=== PATIENT | female | born 1955 | race Caucasian/White ===

== ENCOUNTER 2021-03-27 19:26 | Inpatient (IN) | payer MEDICARE, OTHER ==
[~2021-03-27] VITALS: Ht 157.5 cm; Wt 50.3 kg
--- NOTE | 2021-03-27 19:40 | NUR ---
admitted from [facility] ER awake alert and orientated X4 skin intact C/O abd pain HX> duodenal ulcer no c/o at this time at the bedside #[phone] ARELI Patient speaks [place] but with understanding of [place] noted she is steady on her legs when ambulating tot the bathroom abd soft BS via auscultation rare and faint abd soft
[2021-03-27 20:00] VITALS: BP 124/73
[2021-03-27] MEDS ORDERED: LEVO137T24 PO (20:48)
[2021-03-27] MEDS ORDERED: PANT20TA2 PO (20:48)
[2021-03-27 20:53] VITALS: BP 124/73
[2021-03-27] MEDS ORDERED: ONDANSETRON HCL/PF 4 MG/2 ML VIAL IVP PRN (21:00)
[2021-03-27] MEDS ORDERED: Z GUARD REMEDY 2 OZ OINT TP PRN (21:00)
[2021-03-27] MEDS ORDERED: ACETAMINOPHEN 325 MG TABLET PO PRN (21:00)
[2021-03-27] MEDS ORDERED: Potassium Chloride 20 MEQ in IV LR 1000 ML 1,000 ML IV PRN (21:00)
[2021-03-27] MEDS: METOCLOPRAMIDE HCL 10 MG/2 ML VIAL IV SCH (22:06)
--- NOTE | 2021-03-28 04:35 | NUR ---
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 NPO status maintained IV infusing right wrist peripheral site w/o problems. BS via auscultation faint and rare, abd soft. NO c/o of pain. alert and orientated X4. slept soundly this 12 hours. continent steady on her legs with ambulation
[2021-03-28] MEDS: METOCLOPRAMIDE HCL 10 MG/2 ML VIAL IV SCH ×4 (05:55→23:57)
[2021-03-28 05:59] LABS: BASOPHILS % (AUTO) 0.7 % (0.0-2.0); EOSINOPHILS % (AUTO) 3.5 % (0.0-6.0); HEMATOCRIT 29 % (33-45); HEMOGLOBIN 9.5 g/dL (11.5-14.8); LYMPHOCYTES # (AUTO) 1.9 K/uL (0.8-4.8); LYMPHOCYTES % (AUTO) 31.5 % (20.0-44.0); MEAN CORPUSCULAR HGB CONC 33 g/dl (31.0-36.0); MEAN CORPUSCULAR VOLUME 89 fL (82-100); MONOCYTES # (AUTO) 0.5 K/uL (0.1-1.30); MONOCYTES % (AUTO) 8.6 % (2.0-12.0); NEUTROPHILS # (AUTO) 3.4 K/uL (1.8-8.9); NEUTROPHILS % (AUTO) 55.7 % (43.0-81.0); PLATELET COUNT (AUTO) 232 K/uL (150-450); RED BLOOD CELL COUNT(AUTO) 3.23 MIL/uL (4.0-5.2)
[2021-03-28 07:09] LABS: THYROID STIMULATING HORMONE 0.053 uIU/mL (0.358-3.74)
[2021-03-28 07:24] LABS: ALBUMIN 2.8 g/dL (3.4-5.0); BILIRUBIN,TOTAL 0.4 mg/dL (0.2-1.0); CALCIUM, SERUM 8.7 mg/dL (8.5-10.1); CREATININE 0.7 mg/dL (0.6-1.3); MAGNESIUM 1.9 mg/dL (1.8-2.4); PHOSPHORUS 3.6 mg/dL (2.5-4.9); POTASSIUM 4.2 mmol/L (3.5-5.1); TOTAL PROTEIN, SERUM 6.2 g/dL (6.4-8.2)
[2021-03-28] MEDS: PANTOPRAZOLE 40 MG TABLET.DR PO SCH (07:30)
--- NOTE | 2021-03-28 07:46 | NUR ---
MS RN OPENING NOTES RECEIVED PATIENT IN BED ASLEEP, EASY TO AROUSE. ON ROOM AIR, ALERT AND ORIENTED X 4, NON-VERBAL BUT RESPONDS WITH GESTURES. NO SIGNS OR SYMPTOMS OF DISTRESS NOTED. NO COMPLAINTS OF PAIN AT THIS TIME. BREATHING IS EVEN AND UNLABORED. IV ACCESS LAC#18G, PATENT AND INTACT WITH KCL 20MEQ NS @80MLS/HR. SAFETY MEASURES IN PLACE WITH BED LOCKED IN LOW POSITION, SIDE RAILS UP X 2. CALL LIGHT IS WITHIN REACH. WILL CONTINUE TO MONITOR THROUGHOUT SHIFT. Addendum: 03/28/21 at 0749 by ELLIOT TURCIOS RN ADDENDUM-ERROR WRONG PATIENT
--- NOTE | 2021-03-28 07:53 | NUR ---
MS RN OPENING NOTES RECEIVED PATIENT IN BED AWAKE. PATIENT IS ALERT AND ORIENTED X 4. NO SIGNS OR SYMPTOMS OF DISTRESS NOTED. NO COMPLAINTS OF PAIN AT THIS TIME. ON ROOM AIR, BREATHING IS EVEN AND UNLABORED. IV ACCESS R WRIST#20, PATENT AND INTACT. SAFETY MEASURES IN PLACE WITH BED LOCKED IN LOW POSITION, SIDE RAILS UP X 2. CALL LIGHT IS WITHIN REACH. WILL CONTINUE TO MONITOR THROUGHOUT SHIFT.
[2021-03-28 08:00] VITALS: BP 139/73
[2021-03-28] MEDS: Potassium Chloride 20 MEQ in IV LR 1000 ML 1,000 ML IV SCH ×2 (08:19→18:32)
[2021-03-28] MEDS: LEVOTHYROXINE SODIUM 137 MCG TABLET PO SCH (08:19)
[2021-03-28] MEDS: ENOXAPARIN SODIUM 40 MG/0.4 ML DISP.SYRIN SQ SCH (08:31)
--- NOTE | 2021-03-28 14:35 | NUR ---
RN NOTES PATIENT TRANSPORTED FROM UNIT TO EGD PROCEDURE @1300 WITH STABLE VITAL SIGNS. PATIENT RETURNED FROM PROCEDURE @1414 ACCOMPANIED BY KIMANI GIANG AND OTHER STAFF MEMBER WITH ORDER FROM DR. MCCARTHY UPPER GI SERIES XRAY. ORDERS READ AND CARRIED OUT. PATIENT VITAL SIGNS UPON RETURN WAS BP 155/78, HR 78, TEMPERATURE 98, RESPIRATION 16, SPO2 98 ON RA. BLOOD PRESSURE RETAKEN AFTER 15 MINUTES, 136 77, HR 76. PATIENT IS CONTINUED ON NPO STATUS FOR UPPER GI SERIES. WILL CONTINUE TO MONITOR PATIENT THROUGHOUT SHIFT.
[2021-03-28 16:00] VITALS: BP 153/77
--- NOTE | 2021-03-28 19:10 | NUR ---
MS RN CLOSING NOTES PATIENT IS SITTING IN CHAIR. ALERT AND ORIENTED X 4. NO SIGNS OR SYMPTOMS OF DISTRESS NOTED. NO COMPLAINTS OF PAIN AT THIS TIME. ON ROOM AIR, BREATHING IS EVEN AND UNLABORED. IV ACCESS R WRIST#20, PATENT AND INTACT WITH LRC WITH 20 MEQ KCL RUNNING AT 100MLS/HR. SAFETY MEASURES IN PLACE WITH BED LOCKED IN LOW POSITION, SIDE RAILS UP X 2. CALL LIGHT IS WITHIN REACH. WILL CONTINUE TO MONITOR THROUGHOUT SHIFT.
--- NOTE | 2021-03-28 19:39 | NUR ---
MS RN NOTES PATIENT IS SITTING IN CHAIR. ALERT AND ORIENTED X 4. NO SIGNS OR SYMPTOMS OF DISTRESS NOTED. NO COMPLAINTS OF PAIN AT THIS TIME. ON ROOM AIR, BREATHING IS EVEN AND UNLABORED. IV ACCESS R WRIST#20, PATENT AND INTACT WITH LRC WITH 20 MEQ KCL RUNNING AT 100MLS/HR. SAFETY MEASURES IN PLACE WITH BED LOCKED IN LOW POSITION, SIDE RAILS UP X 2. CALL LIGHT IS WITHIN REACH. WILL CONTINUE TO MONITOR TO MONITOR.
[2021-03-28 20:00] VITALS: BP 149/85
[2021-03-29] MEDS: Potassium Chloride 20 MEQ in IV LR 1000 ML 1,000 ML IV SCH ×2 (04:15→14:18)
[2021-03-29] MEDS: METOCLOPRAMIDE HCL 10 MG/2 ML VIAL IV SCH ×3 (05:23→18:00)
[2021-03-29 05:58] LABS: BASOPHILS % (AUTO) 0.6 % (0.0-2.0); EOSINOPHILS % (AUTO) 1.9 % (0.0-6.0); HEMATOCRIT 33 % (33-45); HEMOGLOBIN 10.9 g/dL (11.5-14.8); LYMPHOCYTES # (AUTO) 2.1 K/uL (0.8-4.8); LYMPHOCYTES % (AUTO) 27.6 % (20.0-44.0); MEAN CORPUSCULAR HGB CONC 33 g/dl (31.0-36.0); MEAN CORPUSCULAR VOLUME 88 fL (82-100); MONOCYTES # (AUTO) 0.5 K/uL (0.1-1.30); MONOCYTES % (AUTO) 6.9 % (2.0-12.0); NEUTROPHILS # (AUTO) 4.9 K/uL (1.8-8.9); PLATELET COUNT (AUTO) 278 K/uL (150-450); RED BLOOD CELL COUNT(AUTO) 3.79 MIL/uL (4.0-5.2); WHITE BLOOD COUNT (AUTO) 7.8 K/uL (4.3-11.0)
[2021-03-29 06:11] LABS: CALCIUM, SERUM 9.3 mg/dL (8.5-10.1); CREATININE 0.8 mg/dL (0.6-1.3); MAGNESIUM 1.6 mg/dL (1.8-2.4); PHOSPHORUS 3.3 mg/dL (2.5-4.9); POTASSIUM 3.6 mmol/L (3.5-5.1)
--- NOTE | 2021-03-29 06:42 | NUR ---
MS RN NOTES PATIENT IS SITTING IN BED ORIENTED X 4. NO SIGNS OR SYMPTOMS OF DISTRESS NOTED. NO COMPLAINTS OF PAIN AT THIS TIME. ON ROOM AIR, BREATHING IS EVEN AND UNLABORED. IV ACCESS R WRIST#20, PATENT AND INTACT WITH LRC WITH 20 MEQ KCL RUNNING AT 100MLS/HR. SAFETY MEASURES IN PLACE WITH BED LOCKED IN LOW POSITION, SIDE RAILS UP X 2. CALL LIGHT IS WITHIN REACH. WILL CONTINUE TO MONITOR TO MONITOR. PT NPO FOR PROCEDURE THIS MORNING CONSENT OBTAINED. WILL ENDORSE CARE TO DAY SHIFT NURSE.
[2021-03-29 08:00] VITALS: BP 151/75
[2021-03-29] MEDS ORDERED: DIATR MEGLU/DIATRIZOATE SODIUM 120 ML BOTTLE (GASTROGRAPHIN) ONE (09:42)
--- NOTE | 2021-03-29 10:50 | NUR ---
m/s truck shop mechanic: notes pt back from upper gi series and back to bed. at bedside.
[2021-03-29] MEDS: PANTOPRAZOLE 40 MG TABLET.DR PO SCH (11:46)
[2021-03-29] MEDS: LEVOTHYROXINE SODIUM 137 MCG TABLET PO SCH (11:46)
[2021-03-29] MEDS: ENOXAPARIN SODIUM 40 MG/0.4 ML DISP.SYRIN SQ SCH (11:46)
[2021-03-29] MEDS: Magnesium 1GM/D5W 100ML PREMIX 100 ML IV SCH ×2 (11:53→13:55)
--- NOTE | 2021-03-29 15:00 | NUR ---
m/s distance learning technician: notes dr. christopher notified re: iv Lr order, ask md if he can change to iv ns per pharmacist with no new order at this time.
--- NOTE | 2021-03-29 17:00 | NUR ---
m/s picture painter: notes upper gi series resulted: Delayed passage of contrast into the duodenum . Limited views of the duodenum on the delayed overhead films demonstrate no gross abnormality. dr. christopher and melinda (ACLS NURSE, surgeon) notified and made aware. pt remains on clear liquid diet. no c/o n/v/d or any discomfort. instructed to call for assistance.
--- NOTE | 2021-03-29 18:30 | NUR ---
m/s fur cleaner: notes dr. christopher called and plan to discharge the pt tonight. pt and made aware. e script will be provided by md as stated and to start on full liquid diet until seen by her primary medical doctor next week.
[2021-03-29] MEDS ORDERED: DEXL60CA3 PO (18:41)
[2021-03-29] MEDS ORDERED: SUCR1ORA15 PO (18:41)
--- NOTE | 2021-03-29 19:00 | NUR ---
m/s marine fisheries technician: notes pt for discharge home tonight. report given to shelly (rn) for continuity of care.
--- NOTE | 2021-03-29 19:50 | NUR ---
MS RN NOTES PT D/C TRANSPORTATION PROVIDED BY HER . PT SIGNED ALL PAPERWORK.COPIES OFF ALL SIGNED PAPERWORK PROVIDED TO PT DISCHARGE INSTRUCTIONS PROVIDED BOTH WRITTEN AND IN WRITTEN FORM. PT IN STABLE CONDITION AT THIS TIME. NO PAIN NO RESPIRATORY DISTRESS NOTED OR REPORTED.
== END 2021-03-29 19:50 | disposition home or self-care (01) | DRG 384 ==
LOC: MED 19:26
PROVIDERS: ADMIT Nurse Practitioner Acute Care; ATTEND Nurse Practitioner Acute Care
PROC: 0DB98ZX Excision of Duodenum, Via Natural or Artificial Opening Endoscopic, Diagnostic (ICD-10-PCS; principal; 2021-03-27)
PROC: 0DB68ZX Excision of Stomach, Via Natural or Artificial Opening Endoscopic, Diagnostic (ICD-10-PCS; 2021-03-27)
DX: K26.9 Duodenal ulcer, unspecified as acute or chronic, without hemorrhage or perforation (principal); K31.1 Adult hypertrophic pyloric stenosis; E03.9 Hypothyroidism, unspecified; K21.00 Gastro-esophageal reflux disease with esophagitis, without bleeding; K29.70 Gastritis, unspecified, without bleeding; E83.42 Hypomagnesemia; K31.9 Disease of stomach and duodenum, unspecified; E86.0 Dehydration; Z91.19 Patient's noncompliance with other medical treatment and regimen; Z87.11 Personal history of peptic ulcer disease
CPT/HCPCS: 36415; 74246-TC; 80048-TC; 80053-TC; 80061-TC; 83540-TC; 83735-TC; 84100-TC; 84443-TC; 85025-TC; 87081-TC; 88305-TC; 88313-TC; 88342; G0378; J0330; J1650; J2405; J2704; J2765; J3475; J3480; J3490; J7120; Q9963

== ENCOUNTER 2021-04-17 16:55 | Emergency (ER) | payer MEDICARE, OTHER ==
[~2021-04-17] VITALS: Ht 154.9 cm; Wt 51.3 kg
[~2021-04-17 16:55] MED LIST: DEXL60CA3 PO; LEVO137T24 PO; SUCR1ORA15 PO
--- NOTE | 2021-04-17 17:14 | NUR ---
Fahad pollack in [facility] - 04/17/21 at 1715 by PRATIMA CALLED TO TRIAGE NO ANSWER, NOT IN [facility]
[2021-04-17 18:08] LABS: BILIRUBIN,URINE MODERATE (NEGATIVE); COLOR,URINE YELLOW (YELLOW); LEUKOCYTE ESTERASE ,URINE Trace (NEGATIVE); NITRITE, URINE Negative (NEGATIVE); PROTEIN,URINE 100 mg/dl (NEGATIVE); UGLUCOSE Negative (NEGATIVE)
[2021-04-17 18:08] LABS: BASOPHILS # (AUTO) 0.1 K/uL (0.0-0.2); BASOPHILS % (AUTO) 0.8 % (0.0-2.0); EOSINOPHILS % (AUTO) 0.6 % (0.0-6.0); HEMATOCRIT 35 % (33-45); HEMOGLOBIN 11.5 g/dL (11.5-14.8); LYMPHOCYTES # (AUTO) 1.6 K/uL (0.8-4.8); LYMPHOCYTES % (AUTO) 16.4 % (20.0-44.0); MEAN CORPUSCULAR HGB CONC 33 g/dl (31.0-36.0); MEAN CORPUSCULAR VOLUME 87 fL (82-100); MONOCYTES # (AUTO) 0.6 K/uL (0.1-1.30); NEUTROPHILS # (AUTO) 7.7 K/uL (1.8-8.9); NEUTROPHILS % (AUTO) 76.2 % (43.0-81.0); PLATELET COUNT (AUTO) 244 K/uL (150-450); RED BLOOD CELL COUNT(AUTO) 4.03 MIL/uL (4.0-5.2)
[2021-04-17 18:17] LABS: BACTERIA,URINE Rare /HPF (None Seen); MUCUS,URINE Moderate /LPF (None Seen); SQUAMOUS EPITHELIAL CELL,UR 0-2 /HPF (None Seen)
[2021-04-17] MEDS ORDERED: IV NS 0.9% 250 ML IV ONE (18:18)
[2021-04-17] MEDS ORDERED: IOHEXOL-300 100 ML VIAL IV ONE (18:18)
[2021-04-17 18:20] LABS: CARBON DIOXIDE 26 mmol/L (21-32); CHLORIDE 101 mmol/L (98-107); GLUCOSE 104 mg/dL (74-106); POTASSIUM 3.5 mmol/L (3.5-5.1); SODIUM SERUM 139 mmol/L (136-145); UREA NITROGEN, BLOOD 9 mg/dL (7-18)
[2021-04-17 18:34] LABS: ALANINE AMINOTRANSFERASE 25 U/L (12-78); ALBUMIN 3.7 g/dL (3.4-5.0); ALKALINE PHOSPHATASE 64 U/L (46-116); ASPARTATE AMINOTRANSFERASE 23 U/L (15-37); BILIRUBIN,DIRECT 0.1 mg/dL (0.0-0.2); BILIRUBIN,TOTAL 0.4 mg/dL (0.2-1.0); CALCIUM, SERUM 9.7 mg/dL (8.5-10.1); LIPASE 185 U/L (73-393); TOTAL PROTEIN, SERUM 8.1 g/dL (6.4-8.2)
[2021-04-17] MEDS ORDERED: FAMOTIDINE/PF INJ 20 MG/2 ML VIAL IV ONE ×2 (19:30→19:37)
[2021-04-17] MEDS ORDERED: LIDOCAINE VISCOUS 2% UD 15 ML UDC MM ONE (19:30)
[2021-04-17] MEDS ORDERED: MAG HYDROX/AL HYDROX/SIMETH 30 ML UDC PO ONE (19:30)
[2021-04-17] MEDS ORDERED: HYDROMORPHONE INJ 2 MG/ML DISP.SYRIN IV ONE (19:30)
[2021-04-17] MEDS ORDERED: MAG HYDROX/AL HYDROX/SIMETH 30 ML UDC ONE (19:36)
[2021-04-17] MEDS ORDERED: LIDOCAINE VISCOUS 2% UD 15 ML UDC ONE (19:36)
[2021-04-17] MEDS ORDERED: HYDROMORPHONE INJ 2 MG/ML DISP.SYRIN ONE (19:36)
[2021-04-17] MEDS ORDERED: MORPHINE SULFATE INJ 2 MG/ML DISP.SYRIN ONE (19:40)
--- NOTE | 2021-04-17 19:41 | NUR ---
clarified with md if pt is to receive Dilaudid 2mg. MD meant to place Morphine 2mg iv. Order changed and noted as per MD order
[2021-04-17] MEDS ORDERED: MORPHINE SULFATE INJ 2 MG/ML DISP.SYRIN IV ONE (20:00)
[2021-04-17] MEDS ORDERED: MAG-55 PO (20:05)
[2021-04-17 20:32] VITALS: BP 138/86
--- NOTE | 2021-04-17 20:32 | NUR ---
Patient discharged to home in stable condition. Written and verbal after care instructions given. Patient verbalizes understanding of instruction.IV removed. Catheter intact and site benign. Pressure and 4x4 applied to site. No bleeding noted. Pt ambulatory with a steady gait
== END 2021-04-17 20:32 | disposition home or self-care (01) ==
LOC: ER 18:15
DX: R10.13 Epigastric pain (principal); R11.2 Nausea with vomiting, unspecified; K21.9 Gastro-esophageal reflux disease without esophagitis; E03.9 Hypothyroidism, unspecified; Z87.11 Personal history of peptic ulcer disease; Z88.0 Allergy status to penicillin; Z79.899 Other long term (current) drug therapy
CPT/HCPCS: 36415; 74177; 80048; 80076; 81001; 83605; 83690; 84484; 85025; 87086; 96374; 99285; J2270; J3490; J7050; Q9967; J1170